=== PATIENT | male | born 1990 | race Caucasian/White ===

== ENCOUNTER → 2018-06-03 | Outpatient (REF) | payer OTHER, MEDICAID | LOC: M SFHCCLAY 09:41 | DX: I10 Essential (primary) hypertension (principal); Z68.41 Body mass index [BMI] 40.0-44.9, adult; E66.01 Morbid (severe) obesity due to excess calories; Z53.9 Procedure and treatment not carried out, unspecified reason ==

== ENCOUNTER → 2018-06-06 | Outpatient (REF) | payer OTHER, MEDICAID ==
[2018-06-06 16:49] LABS: BASO % 0.4 % (0.0-1.0); EOS # 0.2 10^3/uL (0.0-0.50); EOS % 2.2 % (0.0-3.0); HEMATOCRIT 45.4 % (42.0-52.0); HEMOGLOBIN 15.2 g/dl (13.5-17.5); IMMATURE GRANULOCYTE % 0.3 % (0-3.0); LYMPH # 3.4 10^3/uL (1.5-6.5); LYMPH % 36.8 % (24.0-44.0); MEAN CORPUSCULAR HEMOGLOBIN 28.7 pg (27.0-33.0); MEAN CORPUSCULAR HGB CONC 33.5 g/dl (32.0-36.5); MEAN CORPUSCULAR VOLUME 85.8 fl (80.0-96.0); MONO # 0.8 10^3/uL (0.0-0.8); MONO % 8.4 % (0.0-5.0); NEUTROPHILS # 4.8 10^3/uL (1.8-7.7); NEUTROPHILS % 51.9 % (36.0-66.0); PLATELET COUNT, AUTOMATED 272 10^3/uL (150-450); RED BLOOD COUNT 5.29 10^6/uL (4.30-6.10); RED CELL DISTRIBUTION WIDTH 12.9 % (11.5-14.5); WHITE BLOOD COUNT 9.3 10^3/uL (4.0-10.0)
[2018-06-06 17:06] LABS: ESTIMATED AVERAGE GLUCOSE 100 MG/DL (60-110); HEMOGLOBIN A1c 5.1 %
[2018-06-06 17:08] LABS: ALBUMIN 3.9 GM/DL (3.2-5.2); ALBUMIN/GLOBULIN RATIO 1.11 (1.00-1.93); ALKALINE PHOSPHATASE 46 U/L (45-117); ALT/SGPT 53 U/L (12-78); ANION GAP 11 MEQ/L (8-16); AST/SGOT 19 U/L (7-37); BILIRUBIN,TOTAL 0.4 MG/DL (0.2-1.0); BLOOD UREA NITROGEN 14 MG/DL (7-18); CALCIUM LEVEL 8.9 MG/DL (8.5-10.1); CARBON DIOXIDE LEVEL 24 MEQ/L (21-32); CHLORIDE LEVEL 106 MEQ/L (98-107); CHOLESTEROL LEVEL 143 MG/DL (<200); CHOLESTEROL RISK RATIO 4.085 (<5); CREATININE FOR GFR 0.97 MG/DL (0.70-1.30); GLOMERULAR FILTRATION RATE > 60.0 (>60); GLUCOSE, FASTING 79 MG/DL (70-100); HDL CHOLESTEROL 35 MG/DL (>40); LDL CHOLESTEROL 81.6 MG/DL (<100); NON-HDL-C 108 MG/DL; POTASSIUM SERUM 4.3 MEQ/L (3.5-5.1); SODIUM LEVEL 141 MEQ/L (136-145); TOTAL PROTEIN 7.4 GM/DL (6.4-8.2); TRIGLYCERIDES LEVEL 132 MG/DL (<150)
[2018-06-06 17:27] LABS: TOTAL 25(OH) VITAMIN D 14.6 NG/ML (30.0-100.0)
== END ==
LOC: M LABDRWCV 16:19
DX: I10 Essential (primary) hypertension (principal); Z68.41 Body mass index [BMI] 40.0-44.9, adult

== ENCOUNTER → 2020-12-26 | Outpatient (REF) | payer OTHER, MEDICAID ==
[2020-12-26 11:31] LABS: BASO % 0.3 % (0.0-1.0); EOS # 0.2 10^3/uL (0.0-0.5); EOS % 1.9 % (0.0-3.0); HEMATOCRIT 46.7 % (42.0-52.0); HEMOGLOBIN 14.7 g/dl (13.5-17.5); LYMPH # 3.4 10^3/uL (1.5-5.0); LYMPH % 37.6 % (24.0-44.0); MEAN CORPUSCULAR HEMOGLOBIN 27.9 pg (27.0-33.0); MEAN CORPUSCULAR HGB CONC 31.5 g/dl (32.0-36.5); MEAN CORPUSCULAR VOLUME 88.8 fl (80.0-96.0); MONO # 0.8 10^3/uL (0.0-0.8); MONO % 9.1 % (2.0-8.0); NEUTROPHILS # 4.6 10^3/uL (1.5-8.5); NEUTROPHILS % 50.9 % (36.0-66.0); PLATELET COUNT, AUTOMATED 300 10^3/uL (150-450); RED BLOOD COUNT 5.26 10^6/uL (4.30-6.10)
[2020-12-26 11:49] LABS: HEMOGLOBIN A1c 5.2 %
[2020-12-26 12:17] LABS: ALBUMIN 3.9 GM/DL (3.2-5.2); ALT/SGPT 68 U/L (12-78); BILIRUBIN,TOTAL 0.3 MG/DL (0.2-1.0); BLOOD UREA NITROGEN 18 MG/DL (7-18); CALCIUM LEVEL 9.3 MG/DL (8.5-10.1); CARBON DIOXIDE LEVEL 27 MEQ/L (21-32); CHLORIDE LEVEL 108 MEQ/L (98-107); CHOLESTEROL LEVEL 155 MG/DL (<200); CHOLESTEROL RISK RATIO 4.428 (<5); CREATININE FOR GFR 1.14 MG/DL (0.70-1.30); FREE T4 1.05 NG/DL (0.76-1.46); GLOMERULAR FILTRATION RATE > 60.0 (>60); GLUCOSE, FASTING 104 MG/DL (70-100); HDL CHOLESTEROL 35 MG/DL (>40); LDL CHOLESTEROL 95 MG/DL (<100); NON-HDL-C 120 MG/DL; POTASSIUM SERUM 4.2 MEQ/L (3.5-5.1); SODIUM LEVEL 140 MEQ/L (136-145); TOTAL PROTEIN 7.1 GM/DL (6.4-8.2); TRIGLYCERIDES LEVEL 125 MG/DL (<150)
[2020-12-26 12:52] LABS: TOTAL 25(OH) VITAMIN D 16.1 NG/ML (30.0-100.0)
== END ==
LOC: M SFHCCLAY 08:11
PROVIDERS: ATTEND Physician Assistant
DX: E55.9 Vitamin D deficiency, unspecified (principal); I10 Essential (primary) hypertension; E66.01 Morbid (severe) obesity due to excess calories

== ENCOUNTER → 2023-03-16 | Outpatient (CLI) | payer BC, OTHER, MEDICAID | LOC: M SLEEP 20:00 | PROVIDERS: ATTEND Physician Assistant | DX: G47.33 Obstructive sleep apnea (adult) (pediatric) (principal) ==

== ENCOUNTER → 2023-04-01 | Outpatient (CLI) | payer BC, OTHER, MEDICAID | LOC: M SLEEP 20:00 | PROVIDERS: ATTEND Physician Assistant | DX: G47.33 Obstructive sleep apnea (adult) (pediatric) (principal) ==